=== PATIENT | male | born 1940 | race Hispanic/Latino ===

== ENCOUNTER → 2018-06-21 | Day surgery (SDC) | payer MEDICARE ==
[2018-06-18 11:03] LABS: BASOPHILS % 0.6 % (0.0-1.0); EOSINOPHILS # (AUTO) 0.1 (0.0-0.4); HEMATOCRIT 43.8 % (38.2-49.6); HEMOGLOBIN 14.3 g/dL (14.0-18.0); LYMPHOCYTES % 20.7 % (18.0-39.1); MEAN CORPUSCULAR HEMOGLOBIN 30.2 pg (28-32); MEAN CORPUSCULAR HGB CONC 32.6 g/dL (31-35); MEAN CORPUSCULAR VOLUME 92.4 fL (81-99); MONOCYTES # (AUTO) 0.4 (0.2-0.8); MONOCYTES % 7.9 % (4.4-11.3); NEUTROPHILS # (AUTO) 3.2 (2.1-6.9); NEUTROPHILS % 67.6 % (38.7-80.0); PLATELET COUNT 182 x10e3/uL (140-360); RED BLOOD COUNT 4.74 x10e6/uL (4.3-5.7); RED CELL DISTRIBUTION WIDTH 12.9 % (11.7-14.4)
[2018-06-18 11:20] LABS: ANION GAP 11.3 mmol/L (8-16); BLOOD UREA NITROGEN 13 mg/dL (7-26); BUN/CREATININE RATIO 13 (6-25); CALCIUM 9.2 mg/dL (8.4-10.2); CARBON DIOXIDE 26 mmol/L (22-29); CHLORIDE 108 mmol/L (98-107); CREATININE, SERUM 1.02 mg/dL (0.72-1.25); EST GLOMERULAR FILTRATION RATE > 60 ML/MIN (60-); GLUCOSE 103 mg/dL (74-118); POTASSIUM 4.3 mmol/L (3.5-5.1); SODIUM 141 mmol/L (136-145)
--- NOTE | 2018-06-18 11:20 | Diagnostic Imaging Report ---
EXAMINATION: CHEST 2 VIEWS INDICATION: Pre-admit. COMPARISON: None FINDINGS: TUBES and LINES: None. LUNGS/PLEURA: Lungs are well inflated. No evidence of pneumonia or pulmonary edema. Possible trace right pleural effusion. No evidence of pneumothorax. There is an ill-defined opacity overlying the right lower lung. There are calcified opacities projecting over the right lower hemithorax. The largest calcification projects posteriorly on the lateral view. A nodular opacity overlying the left lower lung likely reflects nipple shadow. HEART AND MEDIASTINUM: The cardiomediastinal silhouette is unremarkable. BONES AND SOFT TISSUES: No acute osseous abnormality. UPPER ABDOMEN: No free air under the diaphragm. IMPRESSION: No acute radiographic abnormality. Indeterminate opacity in the right lower lung. Chest CT is suggested for further evaluation. Calcifications overlying the right lower hemithorax likely reflect posterior pleural calcifications. Signed by: Dr. Rex Mackay MD on 06/18/2018 11:16 AM
[~2018-06-21] MED LIST: ALLOPURINOL300 MG PO; BUPIVACAINE 0.5%/EPI 30 ML SDV INJ ONE; BUPIVACAINE 7.5MG/ML /DEXTROSE 82.5MG/ML 2 ML AMP INJ ONE; CEFAZOLIN SOD 1 GM/NS 50ML 50 ML IV ONE; CRESTOR10 MG PO; DEXAMETHASONE SOD PHOS INJ 4 MG/ML VIAL ONE; EPHEDRINE SULFATE INJ 50 MG/10 ML SYR ONE; FENTANYL CITRATE/PF 100MCG/2 ML INJ ONE; FUROSEMIDE40 MG PO; LIDOCAINE HCL 2% LOCAL INJ 5 ML SDV VIAL INJ ONE; METOPROLOL SUCC25 MG PO; METOPROLOL TARTRATE INJ 1 MG/ML VIAL ONE; MIDAZOLAM HCL 2 MG/2 ML VIAL ONE; NEOSTIGMINE 1 MG/ML 10ML VIAL ONE; ONDANSETRON HCL INJ 2MG/ML 2ML 2 MG/ML VIAL ONE; PROPOFOL IV EMULSION 10 MG/ML 20 ML VIAL ONE; SEVOFLURANE INHAL SOLN 250 ML PEN BTL ONE; XARELTO10 MG PO
--- OUTSIDE RECORDS SUMMARY | 2018-06-21 07:25 | XMS REPORT ---
Author [facility] Address Unknown Phone Unavailable Care Team Providers Care Education Officer Name Role Phone GOLD COTTRELL Unavailable Unavailable Payers Payer Name Policy Type Policy Number Effective Date Expiration Date Problems This patient has no known problems. Allergies, Adverse Reactions, Alerts Allergy Name Allergy Type Status Severity Reaction(s) Onset Date Inactive Date Treating Clinician Comments No Known Allergies DA Active U 2016-08-30 00:00:00 Medications This patient has no known medications. Results Test Description Test Time Test Comments Text Results Atomic Results Result Comments CHEST 2 VIEWS 2018-06-18 11:11:00 [place] [address] Patient Name: LARISSA REIS MR #: [id number] : 1940 Age/Sex: 77/M Req #: [id number] Adm Physician: Ordered by: GOLD COTTRELL MD Report #: [id number] Location: OR Room/Bed: Procedure: [id number] DX/CHEST 2 VIEWS Exam Date: 06/18/18 Exam Time: 1020 REPORT STATUS: Signed EXAMINATION: CHEST 2 VIEWS INDICATION: Pre-admit. COMPARISON: None FINDINGS: TUBES and LINES: None. LUNGS/PLEURA: Lungs are well inflated. No evidence of pneumonia or pulmonary edema. Possible trace right pleural effusion. No evidence of pneumothorax. There is an ill-defined opacity overlying the right lower lung. There are calcified opacities projecting over the right lower hemithorax. The largest calcification projects posteriorly on the lateral view. A nodular opacity overlying the left lower lung likely reflects nipple shadow. HEART AND MEDIASTINUM: The cardiomediastinal silhouette is unremarkable. BONES AND SOFT TISSUES: No acute osseous abnormality. UPPER ABDOMEN: No free air under the diaphragm. IMPRESSION: No acute radiographic abnormality. Indeterminate opacity in the right lower lung. Chest CT is suggested for further evaluation. Calcifications overlying the right lower hemithorax likely reflect posterior pleural calcifications. Signed by: Dr. Nael Gambino MD on 06/18/2018 11:16 AM Dictated By: NAEL GAMBINO MD [id number] Transcribed By: MU on 06/18/18 1116 COPY TO: GOLD COTTRELL MD
[2018-06-21 10:05] VITALS: BP 129/85
--- NOTE | 2018-06-21 11:17 | Operative Report ---
DATE OF PROCEDURE: 06/21/2018 SURGEON: Keon Arnold MD INJECTION MOLDING MACHINE TENDER: Hai Castro, certified PA. PREOPERATIVE DIAGNOSIS: Mechanical complication pertaining to internal fixation, left ankle. POSTOPERATIVE DIAGNOSIS: Mechanical complication pertaining to internal fixation, left ankle. PROCEDURE: Hardware removal, left ankle. INDICATIONS: The patient is a 77-year-old gentleman, who had an open reduction and internal fixation of his left ankle at an outside institution. The fracture has gone on to heal. The hardware is backing out on the lateral aspect. The prominent hardware is tender. He would like to have this removed. The risks and benefits of a complete hardware removal were explained. He stated he understood and wished to proceed. PROCEDURE IN DETAIL: The patient was brought to the operating room and placed under general anesthetic. He received prophylactic antibiotics in the holding area. His left lower extremity was prepped and draped in a sterile manner. A preoperative time-out was performed. Extremity was exsanguinated and a proximal tourniquet was inflated to 300 mmHg. The lateral incision was opened. The hardware was carefully dissected out with a [place] elevator and electrocauterized. The screws and plate were carefully removed. The anterior to posterior lag screw was carefully identified and removed. The bone holes were debrided with a periosteal elevator. The wound was irrigated. The periosteal scar complex was reapproximated using 0 Vicryl. The skin was closed using subcuticular 3-0 Vicryl and nylon stitches. 0.5% Marcaine with epinephrine was injected around the incision. Attention was directed toward the medial aspect. A small stab wound was made to remove the medial malleolar screw using the C-arm for localization. This was closed with nylon stitches. A final x-ray confirmed complete hardware removal. A sterile bandage was applied. There was no blood loss. All needle and sponge counts were correct. Keon Arnold MD DR/MARISELA /[id number]
== END | disposition home or self-care (01) ==
LOC: OR 07:10
PROVIDERS: ATTEND Specialist
DX: T84.197A Other mechanical complication of internal fixation device of bone of left lower leg, initial encounter (principal); M10.9 Gout, unspecified; I69.354 Hemiplegia and hemiparesis following cerebral infarction affecting left non-dominant side; I69.328 Other speech and language deficits following cerebral infarction; I10 Essential (primary) hypertension; I48.91 Unspecified atrial fibrillation; Y83.8 Other surgical procedures as the cause of abnormal reaction of the patient, or of later complication, without mention of misadventure at the time of the procedure; Z01.810 Encounter for preprocedural cardiovascular examination; Z01.812 Encounter for preprocedural laboratory examination; Z01.818 Encounter for other preprocedural examination; Z79.02 Long term (current) use of antithrombotics/antiplatelets; Z68.30 Body mass index [BMI] 30.0-30.9, adult; Z87.891 Personal history of nicotine dependence; Z87.81 Personal history of (healed) traumatic fracture
CPT/HCPCS: 20680; 36415; 71046; 80048; 85025; 93005; J0690; J1100; J2001; J2250; J2405; J2704; J2710; 76000